=== PATIENT | male | born 1995 | race Caucasian/White ===

== ENCOUNTER 2020-04-24 11:25 | Outpatient (NON) | payer OTHER, SELFPAY ==
[2020-04-25 21:15] LABS: SARS-CoV-2 RNA PCR Negative
== END 2020-04-24 11:26 ==
PROVIDERS: Visit Provider Physician Assistant Medical
DX: Z20.828 Contact with and (suspected) exposure to other viral communicable diseases (principal); R68.89 Other general symptoms and signs
CPT/HCPCS: 87635; C9803; U0003